=== PATIENT | female | born 1930 ===

== ENCOUNTER 2018-03-03 14:17 | Inpatient (IN) | payer MEDICARE, MEDICAID ==
[2018-03-03 16:56] LABS: BASO # 0.1 K/uL (0.0-0.2); BASO % 0.5 % (0.0-2.0); EOS # 0.2 K/uL (0.0-0.7); EOS % 1.6 % (0.0-4.0); HEMOGLOBIN 12.3 g/dL (12.0-16.0); LYMPH # 1.3 K/uL (1.0-4.3); LYMPH % 12.4 % (20.0-40.0); MEAN CELL VOLUME 90.2 fl (81.0-99.0); MEAN CORPUSCULAR HEMOGLOBIN 30.6 pg (27.0-31.0); MEAN CORPUSCULAR HGB CONC 33.9 g/dL (33.0-37.0); MONO # 0.9 K/uL (0.0-0.8); MONO % 8.9 % (0.0-10.0); NEUT # 8.1 K/uL (1.8-7.0); NEUT % 76.6 % (50.0-75.0); RBC 4.03 Mil/uL (3.80-5.20); RED CELL DISTRIBUTION WIDTH 13.7 % (11.5-14.5); WHITE BLOOD COUNT 10.5 K/uL (4.8-10.8)
[2018-03-03 16:57] LABS: CALCIUM 10.1 mg/dL (8.4-10.2); GFR AFRICAN-AMERICAN > 60; GFR NON-AFRICAN AMERICAN 59
--- NOTE | 2018-03-03 17:01 | ED PDOC ---
HPI: Chest Pain Time Seen by Provider: 03/03/18 14:30 Chief Complaint (Nursing): Chest Pain Chief Complaint (Provider): Chest Pain History Per: Patient History/Exam Limitations: no limitations Onset/Duration Of Symptoms: Days (x1) Current Symptoms Are (Timing): Still Present Additional Complaint(s): 87 y/o female presents to the ED with history of htn high cholesterol and hypothyroidsm here with chest pain. She states the chest pain began yesterday and has had one episode of vomiting yesterday associated with nausea. She denies any fever. Of note, patient states many years ago she had brain surgery for a stroke. PMD: Dr. Vangie Mcgregor NIHSS Stroke Scale - Date/Time Evaluation Performed Date Performed: 03/03/18 Time Performed: 15:00 When Was NIHSS Performed: Baseline - How Severe is the Stroke Level of Consciousness: 0=Alert LOC to Questions: 0=Both comments correct LOC to commands: 0=Obeys both correctly Best Gaze: 0=Normal Visual: 0=No visual loss Facial: 0=Normal Motor Arm - Left: 0=No drift Motor Arm - Right: 0=No drift Motor Leg - Left: 0=No drift Motor Leg - Right: 0=No drift Limb Ataxia: 0=Absent Sensory: 0=Normal Best Language: 0=No aphasia Dysarthia: 0=Normal articulation Extinction & Inattention (Neglect): 0=Normal, no object Score: 0 Past Medical History Reviewed: Historical Data, Nursing Documentation, Vital Signs Vital Signs: Last Vital Signs Temp 98.2 F 03/04/18 12:11 Pulse 69 03/04/18 12:11 Resp 18 03/04/18 12:11 BP 118/65 03/04/18 12:11 Pulse Ox 96 03/04/18 12:11 - Medical History PMH: HTN, Hyperlipidemia, Hypothyroidism, Chronic Kidney Disease - Surgical History Other surgeries: brain surgery - Family History Family History: States: No Known Family Hx - Social History Current smoker - smoking cessation education provided: No Ex-Smoker (has not smoked in the last 12 months): No Alcohol: None Drugs: Denies - Home Medications Home Medications: Ambulatory Orders Medication Instructions Recorded Aspirin [Ecotrin] 81 mg PO DAILY 03/03/18 Atorvastatin [Lipitor] 20 mg PO DAILY 03/03/18 Cholecalciferol (Vitamin D3) 2,000 unit PO DAILY 03/03/18 [Vitamin D3] Levothyroxine [Synthroid] 50 mcg PO DAILY 03/03/18 Memantine HCl/Donepezil HCl 1 cap PO DAILY 03/03/18 [Namzaric 28 mg-10 mg Capsule] Multivitamin [Multi-Vitamin Daily] 1 tab PO DAILY 03/03/18 QUEtiapine [Seroquel] 25 mg PO HS 03/03/18 Ranitidine HCl [Zantac] 150 mg PO DAILY 03/03/18 Valsartan/Hydrochlorothiazide 1 tab PO DAILY 03/03/18 [Diovan Hct 160-25 mg Tablet] Clopidogrel [Plavix] 75 mg PO DAILY #30 tab 03/04/18 - Allergies Allergies/Adverse Reactions: Allergies Allergy/AdvReac Type Severity Reaction Status Date / Time No Known Allergies Allergy Verified 03/03/18 14:35 ANGELIQUE Risk Score for UA/NSTEMI - ANGELIQUE Risk Score Age > 64: YES 3 or more CAD Risk Factors: NO Known CAD (Stenosis greater than 50%): NO Aspirin use in past 7 days: NO Severe Angina: NO EKG ST changes greater than 0.5mm: NO Positive Cardiac Marker: NO ANGELIQUE Score: 1 Risk %: 5% Review of Systems ROS Statement: Except As Marked, All Systems Reviewed And Found Negative Constitutional: Negative for: Fever Cardiovascular: Positive for: Chest Pain Gastrointestinal: Positive for: Nausea, Vomiting Physical Exam - Reviewed Nursing Documentation Reviewed: Yes Vital Signs Reviewed: Yes - Physical Exam Appears: Positive for: Well, Non-toxic, No Acute Distress Head Exam: Positive for: ATRAUMATIC, NORMAL INSPECTION, NORMOCEPHALIC Skin: Positive for: Normal Color, Warm, Dry Eye Exam: Positive for: EOMI, Normal appearance, PERRL ENT: Positive for: Normal ENT Inspection Neck: Positive for: Normal, Painless ROM, Supple Cardiovascular/Chest: Positive for: Regular Rate, Rhythm. Negative for: Murmur Respiratory: Positive for: Normal Breath Sounds. Negative for: Respiratory Distress Gastrointestinal/Abdominal: Positive for: Normal Exam, Soft Back: Positive for: Normal Inspection. Negative for: L CVA Tenderness, R CVA Tenderness, Vertebral Tenderness Extremity: Positive for: Normal ROM. Negative for: Pedal Edema, Deformity Neurologic/Psych: Positive for: Alert, Oriented (x3). Negative for: Motor/ Sensory Deficits - Laboratory Results Result Diagrams: 03/03/18 16:32 03/03/18 16:32 - ECG O2 Sat by Pulse Oximetry: 99 (RA) Pulse Ox Interpretation: Normal Medical Decision Making Medical Decision Making: Time: 1625 Impression: Chest pain with dizziness, will need to rule out carotid artery dissection, IN, or posterior cerebellar stroke. NIH stroke scale done. Initial Plan: --CTA Head and Neck --CT Head w/o Contrast --BMP --Troponin I --CBC --D Dimer --PTT --Prothrombin Time ___ [address] FINDINGS: HEMORRHAGE: No intracranial hemorrhage. BRAIN: No mass effect or edema. Moderate atrophy is noted. Moderate white matter changes are also noted suggestive but nonspecific for chronic microvascular ischemic disease. VENTRICLES: Unremarkable. No hydrocephalus. CALVARIUM: Unremarkable. PARANASAL SINUSES: Unremarkable as visualized. No significant inflammatory changes. MASTOID AIR CELLS: Unremarkable as visualized. No inflammatory changes. OTHER FINDINGS: None. IMPRESSION: No evidence of acute intracranial hemorrhage mass effect or midline shift. Moderate atrophy and moderate white matter changes likely represent chronic microvascular ischemic disease. [address] Head and Neck and admission. signout to dr boles Scribe Attestation: Documented by Ellen Jack, acting as a scribe for Yvan Amaya MD. Provider Scribe Attestation: All medical record entries made by the Scribe were at my direction and personally dictated by me. I have reviewed the chart and agree that the record accurately reflects my personal performance of the history, physical exam, medical decision making, and the department course for this patient. I have also personally directed, reviewed, and agree with the discharge instructions and disposition. Disposition - Clinical Impression Clinical Impression: Chest pain, HTN (hypertension), Dizziness - Patient ED Disposition Is Patient to be Admitted: Transfer of Care - Disposition Disposition: Transfer of Care Disposition Time: 18:30 Condition: STABLE
[2018-03-03 17:06] LABS: PARTIAL THROMBOPLASTIN TIME 28.8 Seconds (25.6-37.1); PROTHROMBIN TIME 11.5 Seconds (9.8-13.1)
[2018-03-03 17:44] LABS: BLOOD UREA NITROGEN 26 mg/dl (7-17)
[2018-03-03] MEDS ORDERED: Sodium Chloride 0.9% 100 ML ONE (17:53)
[2018-03-03] MEDS ORDERED: Iodixanol 320 MG/ML 100 ML BOTTLE IV ONE (17:53)
--- NOTE | 2018-03-03 18:14 | CT ---
PROCEDURE: CT HEAD WITHOUT CONTRAST. HISTORY: dizzines COMPARISON: None available. TECHNIQUE: Axial computed tomography images were obtained through the head/brain without intravenous contrast. Radiation dose: Total exam DLP = 803.46 mGy-cm. This CT exam was performed using one or more of the following dose reduction techniques: Automated exposure control, adjustment of the mA and/or kV according to patient size, and/or use of iterative reconstruction technique. FINDINGS: HEMORRHAGE: No intracranial hemorrhage. BRAIN: No mass effect or edema. Moderate atrophy is noted. Moderate white matter changes are also noted suggestive but nonspecific for chronic microvascular ischemic disease. VENTRICLES: Unremarkable. No hydrocephalus. CALVARIUM: Unremarkable. PARANASAL SINUSES: Unremarkable as visualized. No significant inflammatory changes. MASTOID AIR CELLS: Unremarkable as visualized. No inflammatory changes. OTHER FINDINGS: None. IMPRESSION: No evidence of acute intracranial hemorrhage mass effect or midline shift. Moderate atrophy and moderate white matter changes likely represent chronic microvascular ischemic disease.
--- NOTE | 2018-03-03 19:30 | CT ---
PROCEDURE: CT Angiography of the neck and brain dated 03/03/2018 HISTORY: Dizziness. COMPARISON: Correlation made with concurrent CT scan brain. TECHNIQUE: Contiguous helical/transaxial images of the neck were obtained from the level of the skull-base to the superior mediastinum in the arteriographic phase of enhancement. Coronal and sagittal reformats or also generated. IV contrast dose: 80 cc Visipaque 320 Radiation Dose - DLP: 1217.87 mGy-cm This CT exam was performed using one or more of the following dose reduction techniques: Automated exposure control, adjustment of the mA and/or kV according to patient size, and/or use of iterative reconstruction technique. . FINDINGS: Calcified atherosclerotic plaque seen along the thoracic aorta and origins of the great vessels. Calcified atherosclerotic plaque seen along the mid right common carotid artery with estimated narrowing approximately 55 percent. Atherosclerotic plaque also seen along the distal common carotid artery and extending into the bifurcation and proximal right internal carotid artery with severe high-grade stenosis of distal right internal carotid artery. Minor calcified plaque changes seen along the left common carotid artery. The internal carotid arteries including petrous cavernous and supraclinoid segments widely patent. The vertebral arteries are appear codominant and are patent throughout. Distal margins of the vertebral arteries (proximal intradural segments are asymmetric on in caliber left-sided which is larger-more dominant than the right side. The A1 segments are asymmetric left larger in caliber/more dominant than the right side. The middle cerebral arteries and distal anterior cerebral arteries are relatively and relatively symmetric. The basilar artery and posterior cerebral arteries are symmetric. . No evidence of large aneurysm nor is vascular malformation. OTHER FINDINGS: Note made of hypodense nodular lesions both lobes of the thyroid gland. Followup thyroid ultrasound recommended. The vague ground-glass opacities seen in the upper lobes bilaterally. IMPRESSION: Severe high-grade stenosis of the distal left common carotid artery and carotid bifurcation. The remaining cervical and cerebral vasculature is patent without evidence additional significant stenotic lesions. No evidence of large aneurysm nor vascular malformation.
[2018-03-04] MEDS ORDERED: Levothyroxine 50 MCG TAB PO SCH (06:30)
--- NOTE | 2018-03-04 08:22 | CP.PCM.HP ---
<Luis Felipe Doyle - Last Filed: 03/04/18 13:12> History of Present Illness - History of Present Illness History of Present Illness: CC: dizziness HPI: 87 y/o woman w/ pmh of alzheimer, HTN, HLD, and hypothyroidism presented to the ED w/ dizziness, chest pain, and nausea. The patient reports symptoms started 1-2 days ago prior to arrival to ED. The patient reported x1 episode of non-bloody/non-bilious vomit. The patient became dizzy upon standing. The chest pain was midsternal but is now resolved. The patient reports feeling better. The patient denies headaches, chest pain, SOB, abdominal pain, diarrhea , dysuria, or fever PMD: Dr. Vangie Mcgregor ([place]) PMH: alzheimer, HTN, HLD, and hypothyroidism meds: see med list allergies: NKDA PSH: right common carotid stent Fam: non-contributory SOC: denies smoking, alcohol, and drugs ROS: 12 points assessed and negative unless otherwise reported in HPI Present on Admission - Present on Admission Any Indicators Present on Admission: No History of DVT/PE: No History of Uncontrolled Diabetes: No Urinary Catheter: No Decubitus Ulcer Present: No Review of Systems - Review of Systems All systems: reviewed and no additional remarkable complaints except - Constitutional Constitutional: absent: Chills, Fever, Headache - EENT Eyes: absent: Change in Vision - Cardiovascular Cardiovascular: As Per HPI - Respiratory Respiratory: absent: Dyspnea - Gastrointestinal Gastrointestinal: As Per HPI, Nausea, Vomiting. absent: Abdominal Pain, Diarrhea - Genitourinary Genitourinary: absent: Dysuria - Integumentary Integumentary: absent: Rash - Neurological Neurological: As Per HPI, Dizziness. absent: Headaches Past Patient History - Past Medical History & Family History Past Medical History?: Yes - Past Social History Smoking Status: Never Smoked - CARDIAC Hx Cardiac Disorders: Yes Hx Hypercholesterolemia: Yes Hx Hypertension: Yes - PULMONARY Hx Respiratory Disorders: No - NEUROLOGICAL Hx Neurological Disorder: Yes HX Cerebrovascular Accident: Yes - HEENT Hx HEENT Problems: No - RENAL Hx Chronic Kidney Disease: Yes Hx Dialysis: No - ENDOCRINE/METABOLIC Hx Endocrine Disorders: Yes Hx Hypothyroidism: Yes - HEMATOLOGICAL/ONCOLOGICAL Hx Blood Disorders: No - INTEGUMENTARY Hx Dermatological Problems: No - MUSCULOSKELETAL/RHEUMATOLOGICAL Hx Musculoskeletal Disorders: No Hx Falls: No - GASTROINTESTINAL Hx Gastrointestinal Disorders: No - GENITOURINARY/GYNECOLOGICAL Hx Genitourinary Disorders: No - PSYCHIATRIC Hx Psychophysiologic Disorder: No Hx Substance Use: No - SURGICAL HISTORY Hx Surgeries: Yes Other/Comment: as per family, surgery after stroke about 9 yrs ago - ANESTHESIA Hx Anesthesia: No Meds Allergies/Adverse Reactions: Allergies Allergy/AdvReac Type Severity Reaction Status Date / Time No Known Allergies Allergy Verified 03/03/18 14:35 Physical Exam - Constitutional Appears: Non-toxic, No Acute Distress - Head Exam Head Exam: ATRAUMATIC, NORMAL INSPECTION, NORMOCEPHALIC - Eye Exam Eye Exam: Normal appearance - ENT Exam ENT Exam: Mucous Membranes Moist - Neck Exam Neck exam: Positive for: Full Rom. Negative for: Tenderness - Respiratory Exam Respiratory Exam: Clear to Auscultation Bilateral. absent: Accessory Muscle Use , Decreased Breath Sounds, Rales, Rhonchi, Wheezes, Respiratory Distress - Cardiovascular Exam Cardiovascular Exam: REGULAR RHYTHM. absent: Tachycardia - GI/Abdominal Exam GI & Abdominal Exam: Normal Bowel Sounds, Soft. absent: Distended, Tenderness - Extremities Exam Extremities exam: Negative for: calf tenderness, pedal edema, tenderness - Neurological Exam Neurological exam: Alert, CN II-XII Intact, Oriented x3 - Skin Skin Exam: Dry, Intact, Normal Color, Warm Results - Vital Signs Recent Vital Signs: Last Vital Signs Temp 97.7 F 03/04/18 08:05 Pulse 78 03/04/18 08:05 Resp 18 03/04/18 08:05 BP 125/62 03/04/18 08:05 Pulse Ox 95 03/04/18 08:05 - Labs Result Diagrams: 03/03/18 16:32 03/03/18 16:32 Labs: Laboratory Results - last 24 hr 03/03/18 03/03/18 03/03/18 16:32 16:32 16:32 WBC 10.5 RBC 4.03 Hgb 12.3 Hct 36.3 MCV 90.2 MCH 30.6 MCHC 33.9 RDW 13.7 Plt Count 254 MPV 9.0 Neut % (Auto) 76.6 H Lymph % (Auto) 12.4 L Woodruff % (Auto) 8.9 Eos % (Auto) 1.6 Baso % (Auto) 0.5 Neut # (Auto) 8.1 H Lymph # (Auto) 1.3 Woodruff # (Auto) 0.9 H Eos # (Auto) 0.2 Baso # (Auto) 0.1 PT 11.5 INR 1.0 APTT 28.8 D-Dimer, Quantitative Sodium 140 Potassium 4.0 Chloride 100 Carbon Dioxide 25 Anion Gap 19 BUN 26 H Creatinine 0.9 Est GFR ( Amer) > 60 Est GFR (Non-Af Amer) 59 POC Glucose (mg/dL) Random Glucose 113 H Calcium 10.1 Troponin I < 0.0120 03/03/18 03/04/18 20:35 06:51 WBC RBC Hgb Hct MCV MCH MCHC RDW Plt Count MPV Neut % (Auto) Lymph % (Auto) Woodruff % (Auto) Eos % (Auto) Baso % (Auto) Neut # (Auto) Lymph # (Auto) Woodruff # (Auto) Eos # (Auto) Baso # (Auto) PT INR APTT D-Dimer, Quantitative 911 H Sodium Potassium Chloride Carbon Dioxide Anion Gap BUN Creatinine Est GFR ( Amer) Est GFR (Non-Af Amer) POC Glucose (mg/dL) 96 Random Glucose Calcium Troponin I Assessment & Plan (1) Carotid stenosis Status: Acute Priority: High (2) Dizziness Status: Acute (3) HTN (hypertension) Status: Chronic (4) HLD (hyperlipidemia) Status: Chronic (5) Alzheimer disease Status: Chronic (6) Hypothyroidism Status: Chronic - Assessment and Plan (Free Text) Plan: c/w present management c/w home medication afebrile, non-tachycardic, normotensive neurology recommendations appreciated vascular neurosurgery consult ordered CBC: 10.5>12.3/36.3<254 BMP: 140/4.0, 100/25, 26/0.9, glucose 113, troponin <0.0120 lipid profile: trig 104, chol 136, LDL 57, HDL 41 d-dimer [address]: no acute intracranial change head/neck CTA: severe left common carotid artery stenosis start plavix 75 mg PO daily f/u MRI brain w/o contrast f/u MRA neck w/o contrast f/u orthostatic BP prophylactic measures: DVT SCDs monitor for acute changes <Ky Stanford - Last Filed: 03/08/18 00:24> Results - Vital Signs Recent Vital Signs: Last Vital Signs Temp 97.7 F 03/04/18 16:26 Pulse 76 03/04/18 16:26 Resp 16 03/04/18 16:26 BP 131/61 03/04/18 16:26 Pulse Ox 97 03/04/18 16:26 - Labs Result Diagrams: 03/03/18 16:32 03/03/18 16:32 Assessment & Plan - Assessment and Plan (Free Text) Plan: I was present during evaluation and discussed with Dr Doyle re plans of care and tx. Ky Stanford M.D.
[2018-03-04] MEDS ORDERED: Cholecalciferol 1,000 INTLU TAB PO SCH (09:00)
[2018-03-04] MEDS ORDERED: Multivitamin With Minerals Tab PO SCH (09:00)
[2018-03-04] MEDS ORDERED: Patient's Own Med (Memantine Hcl/Donepezil Hcl [Namzaric 28 Mg-10 Mg Capsule] 1 CAP) PO SCH (09:00)
[2018-03-04 11:44] LABS: HDL CHOLESTEROL 41 MG/DL (30-70)
[2018-03-04 11:56] LABS: LDL CHOLESTEROL 57 mg/dL (0-129)
--- NOTE | 2018-03-04 13:01 | CP.PCM.CON ---
History of Present Illness - History of Present Illness History of Present Illness: Mrs. Nielson is an 87-year-old woman with a past medical history of dementia, HTN , HLD, previous right PARAS, s/p stenting, who presented to the ED with chest pain , nausea/vomiting. She is feeling better now. CTA of the head/neck was concerning for carotid stenosis, but after further review it appears that the right carotid is moderately stenosed, s/p stent, and the left is only mild. These are both asymptomatic. Review of Systems - Review of Systems All systems: reviewed and no additional remarkable complaints except Past Patient History - Past Medical History & Family History Past Medical History?: Yes - Past Social History Smoking Status: Never Smoked - CARDIAC Hx Cardiac Disorders: Yes Hx Hypercholesterolemia: Yes Hx Hypertension: Yes - PULMONARY Hx Respiratory Disorders: No - NEUROLOGICAL Hx Neurological Disorder: Yes HX Cerebrovascular Accident: Yes - HEENT Hx HEENT Problems: No - RENAL Hx Chronic Kidney Disease: Yes Hx Dialysis: No - ENDOCRINE/METABOLIC Hx Endocrine Disorders: Yes Hx Hypothyroidism: Yes - HEMATOLOGICAL/ONCOLOGICAL Hx Blood Disorders: No - INTEGUMENTARY Hx Dermatological Problems: No - MUSCULOSKELETAL/RHEUMATOLOGICAL Hx Musculoskeletal Disorders: No Hx Falls: No - GASTROINTESTINAL Hx Gastrointestinal Disorders: No - GENITOURINARY/GYNECOLOGICAL Hx Genitourinary Disorders: No - PSYCHIATRIC Hx Psychophysiologic Disorder: No Hx Substance Use: No - SURGICAL HISTORY Hx Surgeries: Yes Other/Comment: as per family, surgery after stroke about 9 yrs ago - ANESTHESIA Hx Anesthesia: No Meds Allergies/Adverse Reactions: Allergies Allergy/AdvReac Type Severity Reaction Status Date / Time No Known Allergies Allergy Verified 03/03/18 14:35 - Medications Medications: Current Medications Aspirin (Ecotrin) 81 mg PO DAILY [facility] Last Admin: 03/04/18 09:32 Dose: 81 mg Atorvastatin Calcium (Lipitor) 20 mg PO DAILY [facility] Last Admin: 03/04/18 09:32 Dose: 20 mg Cholecalciferol (Vitamin D) 2,000 intlu PO DAILY [facility] Last Admin: 03/04/18 09:31 Dose: 2,000 intlu Clopidogrel Bisulfate (Plavix) 75 mg PO DAILY [facility] Last Admin: 03/04/18 11:22 Dose: 75 mg Famotidine (Pepcid) 20 mg PO DAILY [facility] Last Admin: 03/04/18 09:31 Dose: 20 mg Home Med (Memantine Hcl/Donepezil Hcl [Namzaric 28 Mg-10 Mg Capsule]) 1 cap PO DAILY [facility] Hydrochlorothiazide (Hydrodiuril) 25 mg PO DAILY [facility] Last Admin: 03/04/18 09:32 Dose: 25 mg Levothyroxine Sodium (Synthroid) 50 mcg PO DAILY@0630 [facility] Last Admin: 03/04/18 09:31 Dose: 50 mcg Multivitamins/Minerals (Therapeutic-M Tab) 1 tab PO DAILY [facility] Last Admin: 03/04/18 09:31 Dose: 1 tab Quetiapine Fumarate (Seroquel) 25 mg PO HS [facility] Trazodone HCl (Desyrel) 50 mg PO HS [facility] Valsartan (Diovan) 160 mg PO DAILY [facility] Last Admin: 03/04/18 09:31 Dose: 160 mg Physical Exam - Neurological Exam Neurological exam: Alert, CN II-XII Intact, Normal Gait, Reflexes Normal Additional comments: Confused about date and place, but oriented to person. Results - Vital Signs Recent Vital Signs: Last Vital Signs Temp 98.2 F 03/04/18 12:11 Pulse 69 03/04/18 12:11 Resp 18 03/04/18 12:11 BP 118/65 03/04/18 12:11 Pulse Ox 96 03/04/18 12:11 - Labs Result Diagrams: 03/03/18 16:32 03/03/18 16:32 Labs: Laboratory Results - last 24 hr 03/03/18 03/03/18 03/03/18 16:32 16:32 16:32 WBC 10.5 RBC 4.03 Hgb 12.3 Hct 36.3 MCV 90.2 MCH 30.6 MCHC 33.9 RDW 13.7 Plt Count 254 MPV 9.0 Neut % (Auto) 76.6 H Lymph % (Auto) 12.4 L Williams % (Auto) 8.9 Eos % (Auto) 1.6 Baso % (Auto) 0.5 Neut # (Auto) 8.1 H Lymph # (Auto) 1.3 Williams # (Auto) 0.9 H Eos # (Auto) 0.2 Baso # (Auto) 0.1 PT 11.5 INR 1.0 APTT 28.8 D-Dimer, Quantitative Sodium 140 Potassium 4.0 Chloride 100 Carbon Dioxide 25 Anion Gap 19 BUN 26 H Creatinine 0.9 Est GFR ( Amer) > 60 Est GFR (Non-Af Amer) 59 POC Glucose (mg/dL) Random Glucose 113 H Calcium 10.1 Troponin I < 0.0120 Triglycerides Cholesterol LDL Cholesterol Direct HDL Cholesterol 03/03/18 03/04/18 03/04/18 20:35 06:51 11:10 WBC RBC Hgb Hct MCV MCH MCHC RDW Plt Count MPV Neut % (Auto) Lymph % (Auto) Williams % (Auto) Eos % (Auto) Baso % (Auto) Neut # (Auto) Lymph # (Auto) Williams # (Auto) Eos # (Auto) Baso # (Auto) PT INR APTT D-Dimer, Quantitative 911 H Sodium Potassium Chloride Carbon Dioxide Anion Gap BUN Creatinine Est GFR ( Amer) Est GFR (Non-Af Amer) POC Glucose (mg/dL) 96 Random Glucose Calcium Troponin I Triglycerides 104 Cholesterol 136 LDL Cholesterol Direct 57 HDL Cholesterol 41 Assessment & Plan (1) Carotid stenosis Assessment and Plan: The patient has a stent in the right carotid and her symptoms are not related to her carotid disease. I recommend cardiac work-up, adequate hydration and follow up with outpatient neurology and cardiology. Neurointerventional consultation is not necessary at this time. Thank you. Status: Acute Priority: High
--- NOTE | 2018-03-04 14:41 | CP.PCM.PCO ---
Assessment and Plan - Assessment and Plan (Free Text) Assessment: Patient seen and examined at bedside. Alert awake lao speaking, oriented to person only Family at bedside. Plan discussed with Dr Forrester-patient cleared by neurology point of view no need for neurointerventionalist. Patient to cont asa and plavix plan discussed with family and PMD To dc and follow up with patients own PCP.
[2018-03-04 16:27] VITALS: BP 131/61; PULSE 76; RESP 16; TEMP 97.7; O2SAT 97
--- NOTE | 2018-03-04 17:10 | MRI ---
PROCEDURE: MRI BRAIN WITHOUT CONTRAST HISTORY: dizziness COMPARISON: None. TECHNIQUE: Multiplanar, multisequence MR images of the brain were obtained without intravenous contrast enhancement. FINDINGS: HEMORRHAGE: None DWI: No evidence of an acute or early subacute infarction. BRAIN PARENCHYMA: Probable small left frontal vertex chronic infarct is appreciated with otherwise diffuse cerebral atrophy chronic microangiopathy seen throughout the cerebrum which appears age appropriate. Ex vacuo expansion of the left lateral ventricle is appreciated mildly. Intrinsic signal throughout the cerebellum and brainstem is normal overall. No mass effect or suspicious midline finding. No suspicious extra-axial fluid collection identified. Empty sella evident. VENTRICLES: Unremarkable. No hydrocephalus. CRANIUM: Unremarkable. ORBITS: Grossly unremarkable. PARANASAL SINUSES/MASTOIDS: Clear VASCULAR SYSTEM: Skull base flow voids intact. OTHER FINDINGS: None. IMPRESSION: Age-appropriate age related neuro degenerative change identified without acute intracranial findings by standard MRI criteria. Empty sella noted.
--- NOTE | 2018-03-04 18:09 | MRI ---
PROCEDURE: MR Angiography of the neck without contrast HISTORY: evaluation of the srikanth carotid stenosis COMPARISON: Head and neck CT angiogram 03/04/2018. TECHNIQUE: 3D [id number] angiography of the neck was performed. Rotating maximum intensity projection images of the cervical carotid and vertebral arteries were generated. The origins of the common carotid arteries were not visualized, which is a limitation inherent to the non-contrast time of flight technique. FINDINGS: RIGHT CAROTID ARTERIES: Common Carotid Artery: Marginal distal right CCA stenosis with the vessel remaining widely patent regardless. Carotid Bifurcation: Mild carotid atherosclerosis noted at the bulb Internal Carotid Artery:Normal. External Carotid Artery (proximal branches): Normal. LEFT CAROTID ARTERIES: Common Carotid Artery: Evaluation is distorted by artifact related to a wall stent in the distal left CCA extending to the bifurcation. High-grade stenosis is not excluded though the lumen is better depicted in preliminary CT angiogram of the head and neck performed 03/04/2018 earlier today at 1:26 p.m.. Please referred of that examination. Carotid Bifurcation: Obscured by wall stent. Internal Carotid Artery:Proximal segment obscured by wall stent though the vast majority appears widely patent in the neck. External Carotid Artery (proximal branches): Proximal left ECA obscured by Wallstent at the distal left CCA. VERTEBRAL ARTERIES: Right Vertebral Artery: Normal. Left Vertebral Artery: Normal. OTHER FINDINGS: None. IMPRESSION: High-grade distal right CCA and proximal right ICA stenoses not excluded due to artifact related to wall stents at distal left CCA. Please see separate head/neck CTA also performed 03/04/2015. No significant stenosis left CCA or cervical ICA. Patent bilateral vertebral arteries.
--- NOTE | 2018-03-05 07:40 | PQF GENQUE ---
Dr. Stanford, 2 queries: 1. Final: Principal Diagnosis es) for this encounter? 2. Etiology of Dizziness and Chest Pain if known: or please document Etiology undetermined etc. OR: Unable to determine BUN: 26 Trop x 1: <0.0120 Brain MRI: IMPRESSION: Age-appropriate age related neuro degenerative change identified without acute intracranial findings by standard MRI criteria. Empty sella noted. MRA Neck without contrast: IMPRESSION: High-grade distal right CCA and proximal right ICA stenoses not excluded due to artifact related to wall stents at distal left CCA. Please see separate head/neck CTA also performed 2014. No significant stenosis left CCA or cervical ICA. Patent bilateral vertebral arteries. H and P: Assessment Plan :(1) Carotid stenosis Status: Acute Priority: High (2 ) Dizziness Status: Acute (3) HTN (hypertension) Status: Chronic (4) HLD ( hyperlipidemia) Status: Chronic (5) Alzheimer disease Status: Chronic (6) Hypothyroidism Status: Chronic neurology recommendations appreciated ,vascular neurosurgery consult ordered head CT: no acute intracranial change head/neck CTA: severe left common carotid artery stenosis start plavix 75 mg PO daily ;f/u MRI brain w/o contrast ;f/u MRA neck w/o contrast f/u orthostatic BP ;prophylactic measures: DVT SCDs ;monitor for acute changes 03/04 Neurology consult: previous right PARAS, s/p stenting, who presented to the ED with chest pain, nausea/vomiting. She is feeling better now. CTA of the head/ neck was concerning for carotid stenosis, but after further review it appears that the right carotid is moderately stenosed, s/p stent, and the left is only mild. These are both asymptomatic. Assessment Tammie : (1) Carotid stenosis Assessment and Plan: The patient has a stent in the right carotid and her symptoms are not related to her carotid disease. I recommend cardiac work-up, adequate hydration and follow up with outpatient neurology and cardiology. Neurointerventional consultation is not necessary at this time. This form is a permanent part of the medical record Clarification of your documentation is requested to better reflect the severity of illness and intensity of treatment of your patient. Indicators present [] Specify: [] [] Specify: [] [] Specify: [] [] Specify: [] Location in the medical record that reflects the above clinical findings: [] Treatment Provided: [] PHYSICIAN'S RESPONSE Based on your medical judgment of the clinical indicators outlined above please clarify the following: [] Practitioner response [] If unable to determine, please check the box, sign and date. Present On Admission (POA) Indicator: [] Present at the time of admission [] Not present at the time of admission [] Clinically Undetermined In responding to this query, please exercise your independent professional judgment. The fact that a question is asked does not imply that any particular answer is desired or expected. Thank you for your clarification on this documentation. If you have any questions please call. * Thank you, Heavenly Clemens RN ext. #[phone] MTDD
== END 2018-03-04 18:10 | disposition home or self-care (01) | DRG 68 ==
LOC: H.ER 14:17 → H.ERHOLD 21:58 → H.TEL 03-04 01:17
PROVIDERS: ADMIT Family Medicine; ATTEND Family Medicine
DX: I65.22 Occlusion and stenosis of left carotid artery (principal); I12.9 Hypertensive chronic kidney disease with stage 1 through stage 4 chronic kidney disease, or unspecified chronic kidney disease; E78.00 Pure hypercholesterolemia, unspecified; E03.9 Hypothyroidism, unspecified; E78.5 Hyperlipidemia, unspecified; G30.9 Alzheimer's disease, unspecified; F02.80 Dementia in other diseases classified elsewhere, unspecified severity, without behavioral disturbance, psychotic disturbance, mood disturbance, and anxiety; N18.9 Chronic kidney disease, unspecified; Z86.73 Personal history of transient ischemic attack (TIA), and cerebral infarction without residual deficits